=== PATIENT | male | born 1995 ===

== ENCOUNTER 2023-01-24 10:49 | Emergency (ER) | payer SELFPAY ==
[2023-01-24] MEDS ORDERED: Ketorolac 60 MG/2 ML SDV IM ONE (11:27)
[2023-01-24] MEDS ORDERED: Orphenadrine 100 MG Tab.ER PO STA (11:27)
== END 2023-01-24 13:00 | disposition home or self-care (01) ==
LOC: JD.ED 10:49
DX: M54.42 Lumbago with sciatica, left side (principal); F17.210 Nicotine dependence, cigarettes, uncomplicated
CPT/HCPCS: 96372; 99283; A9270; J1885